=== PATIENT | male | born 1985 | race Caucasian/White ===

== ENCOUNTER 2016-12-10 18:05 | Inpatient (IN) | payer MEDICARE, OTHER ==
[~2016-12-10] VITALS: Ht 188 cm; Wt 68.7 kg
[~2016-12-10 18:05] MED LIST: ALBU6.7H INH; AZIT250T43 PO; BUSP30TA PO; PRED20 PO; RISP3 PO; SPAC1MIS6
[2016-12-10 18:20] VITALS: BP 128/73; PULSE 79; RESP 18; TEMP 98.2; O2SAT 95
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
[2016-12-10] MEDS ORDERED: BUSP30TA PO (19:33)
[2016-12-10] MEDS ORDERED: RISP3 PO (19:33)
[2016-12-10] MEDS ORDERED: busPIRone HCL 10 MG TAB PO ONE (21:15)
[2016-12-10] MEDS ORDERED: risperiDONE 3 MG TAB PO ONE (21:15)
[2016-12-10 21:19] VITALS: BP 121/61; PULSE 76; RESP 18; O2SAT 18; O2SAT 96
[2016-12-10 21:22] LABS: AMPHETAMINE, URINE NEG (NEG); BARBITURATES, URINE NEG (NEG); COCAINE, URINE NEG (NEG)
[2016-12-10 21:56] LABS: AUTOMATED NEUTROPHIL # 5.6 TH/MM3 (1.8-7.7); BASOPHIL % 0.1 % (0.0-2.0); EOSINOPHIL % 0.5 % (0.0-4.0); HEMATOCRIT 46.7 % (39.0-51.0); HEMO FLAGS DIFF FINAL; LYMPH % 19.7 % (9.0-44.0); LYMPHOCYTE # 1.6 TH/MM3 (1.0-4.8); MEAN CELL VOLUME 83.8 FL (80.0-100.0); MEAN CORPUSCULAR HEMOGLOBIN 28.2 PG (27.0-34.0); MEAN CORPUSCULAR HGB CONC 33.6 % (32.0-36.0); NEUT % 69.7 % (16.0-70.0); PLATELET COUNT 231 TH/MM3 (150-450); RED BLOOD COUNT 5.57 MIL/MM3 (4.50-5.90); RED CELL DISTRIBUTION WIDTH 13.8 % (11.6-17.2); WHITE BLOOD COUNT 8.1 TH/MM3 (4.0-11.0)
[2016-12-10 22:06] LABS: ANION GAP 9 MEQ/L (5-15); AST (GOT) 17 U/L (15-37); BICARBONATE 29.4 MEQ/L (21.0-32.0); BLOOD UREA NITROGEN 16 MG/DL (7-18); CHLORIDE 103 MEQ/L (98-107); GLOMERULAR FILTRATION RATE 52 ML/MIN (>89); SODIUM (NA) 141 MEQ/L (136-145)
[2016-12-10 22:10] LABS: ALKALINE PHOSPHATASE 53 U/L (45-117); ALT (GPT) 22 U/L (12-78); TOTAL BILIRUBIN ADULT 0.6 MG/DL (0.2-1.0)
[2016-12-11 02:40] VITALS: BP 134/67; PULSE 63; RESP 18; TEMP 97.8; O2SAT 96
[2016-12-11 06:20] VITALS: BP 110/54; PULSE 61; RESP 18; TEMP 97.7; O2SAT 97
[2016-12-11 10:43] VITALS: BP 106/60; PULSE 85; RESP 18; O2SAT 94
[2016-12-11] MEDS ORDERED: ACETAMINOPHEN 325 MG TAB PO ONE (12:00)
[2016-12-11 14:04] VITALS: BP 119/59; PULSE 78; RESP 18
[2016-12-11] MEDS ORDERED: LORazepam 1 MG TAB PO PRN (15:30)
[2016-12-11] MEDS ORDERED: LORazepam 2 MG/ML VIAL IM PRN (15:30)
[2016-12-11] MEDS ORDERED: ACETAMINOPHEN 325 MG TAB PO PRN (15:30)
[2016-12-11] MEDS ORDERED: ALUMINUM/MAGNESIUM/SIMETH 30 ML CUP PO PRN (15:30)
[2016-12-11] MEDS ORDERED: hydrOXYzine HCL 50 MG TAB PO PRN (15:30)
[2016-12-11] MEDS ORDERED: MAGNESIUM HYDROXIDE SUSP 30 ML CUP PO PRN (15:30)
[2016-12-11 17:54] VITALS: BP 119/58; PULSE 70; RESP 18; O2SAT 95
[2016-12-11 18:20] VITALS: BP 119/66; PULSE 77; RESP 18; TEMP 97.1; O2SAT 98
[2016-12-11] MEDS ORDERED: risperiDONE ODT 2 MG TAB PO SCH (21:00)
[2016-12-12 06:10] VITALS: BP 133/70; PULSE 77; RESP 18; TEMP 97.9; O2SAT 95
[2016-12-12 08:26] LABS: HDL CHOLESTEROL 55.8 MG/DL (40.0-60.0); LDL CHOLESTEROL 91 MG/DL (0-99)
[2016-12-12] MEDS ORDERED: busPIRone HCL 10 MG TAB PO SCH (09:00)
[2016-12-12 12:56] LABS: HEMOGLOBIN A1a 1.1 %; HEMOGLOBIN A1b 0.8 %; HEMOGLOBIN Ao 86.4 %; HEMOGLOBIN F 0.7 %; HEMOGLOBIN LA1C 1.7 %; HEMOGLOBIN P3 3.5 %
[2016-12-12] MEDS ORDERED: ACETAMINOPHEN 325 MG TAB PO PRN (15:00)
[2016-12-12] MEDS ORDERED: MAGNESIUM HYDROXIDE SUSP 30 ML CUP PO PRN (15:00)
[2016-12-12] MEDS ORDERED: ALUMINUM/MAGNESIUM/SIMETH 30 ML CUP PO PRN (15:00)
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
[2016-12-12] MEDS: busPIRone HCL 5 MG TAB PO SCH (17:27)
[2016-12-12 18:00] VITALS: BP 114/59; PULSE 85; RESP 18; TEMP 97.9
[2016-12-12] MEDS: risperiDONE ODT 1 MG TAB PO SCH (20:33)
[2016-12-13 06:14] VITALS: BP 123/63; PULSE 78; RESP 18; TEMP 97.6; O2SAT 98
[2016-12-13] MEDS: busPIRone HCL 5 MG TAB PO SCH ×3 (08:54→17:37)
[2016-12-13] MEDS: risperiDONE ODT 1 MG TAB PO SCH ×2 (08:54→21:07)
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
[2016-12-13 18:00] VITALS: BP 115/63; PULSE 73; RESP 17; TEMP 97.1; O2SAT 96
[2016-12-13 19:52] VITALS: BP 115/63; PULSE 73; RESP 17; TEMP 97.1; O2SAT 96
[2016-12-14 05:52] VITALS: BP 110/59; PULSE 56; RESP 16; TEMP 97.1; O2SAT 96
[2016-12-14] MEDS: risperiDONE ODT 1 MG TAB PO SCH (09:07)
[2016-12-14] MEDS: busPIRone HCL 5 MG TAB PO SCH ×2 (09:08→12:21)
[2016-12-14 10:21] LABS: BICARBONATE 31.7 MEQ/L (21.0-32.0); POTASSIUM 4.5 MEQ/L (3.5-5.1)
[2016-12-14] MEDS ORDERED: RISP3 PO (14:36)
[2016-12-14] MEDS ORDERED: BUSP5TAB PO (14:36)
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
== END 2016-12-14 15:55 | disposition home or self-care (01) | DRG 884 ==
LOC: NEDAMB 18:05 → NEDA 12-11 15:18 → H270 12-11 18:16
PROVIDERS: ADMIT Psychiatry & Neurology Psychiatry; ATTEND Psychiatry & Neurology Psychiatry
DX: F84.0 Autistic disorder (principal); F79 Unspecified intellectual disabilities; F06.0 Psychotic disorder with hallucinations due to known physiological condition; F28 Other psychotic disorder not due to a substance or known physiological condition
CPT/HCPCS: 80048; 80053; 80061; 80307; 83036; 85025; 99285